=== PATIENT | male | born 1995 | race Two or more races ===

== ENCOUNTER 2017-06-18 10:38 | Emergency (ER) | payer SELFPAY ==
[~2017-06-18] VITALS: Ht 165.1 cm; Wt 55.6 kg
[2017-06-18 10:38] VITALS: BP 113/75
== END 2017-06-18 11:24 | disposition home or self-care (01) ==
LOC: ED 10:52
DX: K08.89 Other specified disorders of teeth and supporting structures (principal)
CPT/HCPCS: 99283